=== PATIENT | male | born 1985 | race Caucasian/White ===

== ENCOUNTER 2018-09-21 08:39 | Inpatient (IN) ==
[2018-09-21] MEDS ORDERED: SENOKOT PO PRN (14:55)
[2018-09-21] MEDS ORDERED: DULCOLAX PR PRN (14:55)
[2018-09-21] MEDS ORDERED: PHENOBARBITAL IV PRN (14:55)
[2018-09-21] MEDS ORDERED: MOTRIN PO PRN (14:55)
[2018-09-21] MEDS ORDERED: LIBRIUM PO PRN (14:55)
[2018-09-21] MEDS ORDERED: TUBERSOL ID ONE (14:55)
[2018-09-21] MEDS ORDERED: ATARAX PO PRN (14:55)
[2018-09-21] MEDS ORDERED: NICODERM PATCH TD PRN (14:55)
[2018-09-21] MEDS ORDERED: IMODIUM PO PRN (14:55)
[2018-09-21] MEDS ORDERED: ZOFRAN IV PRN (14:55)
[2018-09-21] MEDS ORDERED: ROBAXIN PO PRN (14:55)
[2018-09-21] MEDS ORDERED: SINEMET 25/100 PO PRN (14:55)
[2018-09-21] MEDS ORDERED: D5W 1,000 ML IV PRN (14:55)
[2018-09-21] MEDS ORDERED: ZOFRAN ODT PO PRN (14:55)
[2018-09-21] MEDS ORDERED: BENTYL PO PRN (14:55)
[2018-09-21] MEDS ORDERED: MAALOX PLUS LIQUID PO PRN (14:55)
[2018-09-21] MEDS ORDERED: TYLENOL PO PRN (14:55)
[2018-09-21 15:56] LABS: HEMATOCRIT 38.3 % (42.0-52.0); HEMOGLOBIN 12.9 g/dL (14.0-18.0); MCH 32.1 PG (27-31); MCHC 33.7 g/dL (33-37); MCV 95.3 FL (81-99); MPV 10.4 FL (7.4-10.4); RBC 4.02 XMIL (4.7-6.1); RDW 12.2 % (11.5-14.5); WBC 6.04 X1000 (4.8-10.8)
[2018-09-21 16:23] LABS: AMYLASE 21 U/L (20-200); LIPASE 16 U/L (13-60)
[2018-09-21 16:26] LABS: AGAP 9; ALBUMIN 4.4 g/dL (3.5-5.0); ALKALINE PHOSPHATASE 79 U/L (32-122); BUN 17 mg/dL (8-22); CALCIUM 8.8 mg/dL (8.8-10.2); CHLORIDE 105 mmol/L (98-107); COSMO 288; CREATININE 0.8 mg/dL (0.7-1.2); ESTIMATED GFR > 60; GLUCOSE 87 mg/dL (70-104); GOT 14 U/L (10-34); GPT 15 U/L (10-44); INR 0.86; POTASSIUM 5.4 mmol/L (3.5-5.1); PROTIME 12.2 Seconds (11.0-16.0); SODIUM 144 mmol/L (136-145); TCO2 30 mmol/L (25-35); TOTAL PROTEIN 7.1 g/dL (6.3-8.3)
[2018-09-21 16:49] LABS: URINE SOURCE VOIDED
[2018-09-21 17:05] LABS: BILIRUBIN URINE NEGATIVE (NEGATIVE); BLOOD URINE NEGATIVE (NEGATIVE); CLARITY CLEAR (CLEAR); COLOR YELLOW; GLUCOSE URINE NEGATIVE (NEGATIVE); KETONE URINE NEGATIVE (NEGATIVE); LEUKOCYTES URINE NEGATIVE (NEGATIVE); NITRITE URINE NEGATIVE (NEGATIVE); PROTEIN URINE NEGATIVE (NEGATIVE); SP GRAVITY URINE 1.005; UROBILINOGEN URINE NORMAL
[2018-09-21] MEDS ORDERED: NS 1,000 ML IV SCH (17:45)
[2018-09-21] MEDS ORDERED: SUBOXONE 2 MG/0.5 MG FILM SL SCH (18:00)
[2018-09-21] MEDS ORDERED: TORADOL IV PRN (18:11)
[2018-09-21] MEDS: LIBRIUM PO SCH (18:35)
[2018-09-21 18:54] LABS: UR AMPHETAMINES QUAL PRESUMPTIVE POSITIVE (NONE DETECT)
[2018-09-21 18:55] LABS: UR BARBITUATES QUAL NONE DETECTED (NONE DETECT); UR BENZODIAZEPIN QUAL PRESUMPTIVE POSITIVE (NONE DETECT); UR CANNABINOIDS QUAL PRESUMPTIVE POSITIVE (NONE DETECT); UR COCAINE QUAL NONE DETECTED (NONE DETECT); UR METHADONE QUAL NONE DETECTED (NONE DETECT); UR METHAMPHETAMINE QUAL NONE DETECTED (NONE DETECT); UR OPIATES QUAL NONE DETECTED (NONE DETECT); UR OXYCODONE QUAL NONE DETECTED (NONE DETECT); UR PCP QUAL NONE DETECTED (NONE DETECT); UR PROPOXYPHENE QUAL NONE DETECTED (NONE DETECT); UR TCA QUAL NONE DETECTED (NONE DETECT)
[2018-09-22] MEDS: LIBRIUM PO SCH ×4 (00:16→18:39)
[2018-09-22] MEDS: SEROQUEL PO PRN ×2 (00:25→20:54)
[2018-09-22] MEDS: PROTONIX PO SCH (06:13)
[2018-09-22 07:26] LABS: HEMATOCRIT 35.7 % (42.0-52.0); HEMOGLOBIN 11.8 g/dL (14.0-18.0); MCH 32.1 PG (27-31); MCHC 33.1 g/dL (33-37); MPV 10.6 FL (7.4-10.4); RBC 3.68 XMIL (4.7-6.1); RDW 12.5 % (11.5-14.5); WBC 4.08 X1000 (4.8-10.8)
[2018-09-22 07:51] LABS: AGAP 6; ALBUMIN 3.7 g/dL (3.5-5.0); ALKALINE PHOSPHATASE 69 U/L (32-122); BUN 12 mg/dL (8-22); CHLORIDE 107 mmol/L (98-107); COSMO 282; CREATININE 0.5 mg/dL (0.7-1.2); ESTIMATED GFR > 60; GLUCOSE 84 mg/dL (70-104); GOT 12 U/L (10-34); GPT 12 U/L (10-44); POTASSIUM 4.2 mmol/L (3.5-5.1); SODIUM 142 mmol/L (136-145); TCO2 30 mmol/L (25-35); TOTAL PROTEIN 6.4 g/dL (6.3-8.3)
[2018-09-22] MEDS: THERA M PLUS PO SCH (09:47)
[2018-09-22] MEDS: VITAMIN B-1 PO SCH (09:47)
[2018-09-22] MEDS: FOLIC ACID PO SCH (09:48)
[2018-09-22] MEDS: SUBOXONE 8 MG/2 MG FILM SL SCH ×2 (09:48→20:54)
--- NOTE | 2018-09-22 20:55 | PROGRESS NOTE ---
DATE: 09/22/2018 SUBJECTIVE: The patient is a 33-year-old male who presented [facility] secondary to nausea, vomiting, abdominal pain. He continues to have some of those symptoms, although notes that they are improving. States he had a bad night. Still having insomnia and is quite restless. PHYSICAL EXAMINATION: Vital Signs: Reviewed. He is afebrile. Blood pressure is currently stable. Heart rate is stable. General: Patient is awake, alert. He is in no current respiratory distress. HEENT: Normocephalic, atraumatic. MAL. Neck: Supple. No JVD. Cardiovascular: Regular rate. Chest: Chest clear, nonlabored. Abdomen: Soft, nondistended. Nontender. Extremities: Moves all extremities. ASSESSMENT: 1. Nausea and vomiting with abdominal pain. 2. Tremors. 3. Myalgias. 4. Paresthesias. 5. Paroxysmal sweating. 6. Opiate abuse, withdrawal and stabilization. 7. Benzo abuse, withdrawal and stabilization. PLAN: Continue patient in the hospital. Continue to wean. Continue counseling. Further orders as needed. cc: Herrera Preciado MD
[2018-09-22] MEDS: DESYREL PO PRN (23:46)
[2018-09-23] MEDS: LIBRIUM PO SCH ×3 (02:36→18:46)
[2018-09-23] MEDS: PROTONIX PO SCH ×2 (06:21→08:42)
[2018-09-23] MEDS: VITAMIN B-1 PO SCH (08:42)
[2018-09-23] MEDS: THERA M PLUS PO SCH (08:43)
[2018-09-23] MEDS: FOLIC ACID PO SCH (08:43)
[2018-09-23] MEDS: SUBOXONE 8 MG/2 MG FILM SL SCH ×2 (08:43→21:04)
[2018-09-23] MEDS: SEROQUEL PO PRN (21:03)
[2018-09-23] MEDS: DESYREL PO PRN (23:56)
[2018-09-24] MEDS: LIBRIUM PO SCH ×2 (02:34→20:48)
[2018-09-24] MEDS: PROTONIX PO SCH (06:20)
[2018-09-24] MEDS ORDERED: SUBOXONE 2 MG/0.5 MG FILM SL ONE (09:22)
[2018-09-24] MEDS: VITAMIN B-1 PO SCH (09:57)
[2018-09-24] MEDS: FOLIC ACID PO SCH (09:58)
[2018-09-24] MEDS: THERA M PLUS PO SCH (09:58)
--- NOTE | 2018-09-24 18:20 | PROGRESS NOTE ---
DATE: 09/24/2018 SUBJECTIVE: Patient notes he is feeling much better. Denies any muscle aches, tremors, myalgias, etc. PHYSICAL: Vital Signs: Reviewed and stable. Patient is awake, alert. He is in no current respiratory distress. Very pleasant to talk with. HEENT: Normocephalic. Neck: Supple. CV: Regular rate. Chest: Clear. Abdomen: Soft. ASSESSMENT: 1. Nausea, vomiting resolved. 2. Abdominal pain resolved. 3. Myalgias resolved. 4. Paresthesias resolved. 5. Paroxysmal sweating resolved. 6. Polysubstance use and abuse. PLAN: The patient's symptoms have resolved but this is likely secondary to taking Suboxone yesterday to improve his withdrawal symptoms. Today will decrease him to 4 mg this morning then 2 mg tonight. If he tolerates that then will change to 1 mg tomorrow. Will continue Librium, continue taper it. Again discussed with patient naltrexone, we will not start back currently as he is on Suboxone. cc: Herrera Preciado MD
--- NOTE | 2018-09-24 18:37 | HISTORY AND PHYSICAL ---
CHIEF COMPLAINT: Nausea, vomiting. HISTORY OF PRESENT ILLNESS: The patient is a 33-year-old male who presented [facility] secondary to long history of polysubstance abuse, has recently been on Suboxone but he states that he wants to be off of that. Notes that he stopped it abruptly and started having significant withdrawal symptoms. SOCIAL HISTORY: He is . He is currently unemployed. Lives at home in [place]. PAST MEDICAL HISTORY: Has no current active medical problems that are not related to substance abuse. He does have chronic anxiety, has history of blackouts and seizures that are related to his substance abuse. Has a remote history of hypertension but is not currently taking medications. MEDICATIONS: Nica, Klonopin 1 mg twice daily, Suboxone 8 mg daily. ALLERGIES: No known drug allergies. REVIEW OF SYSTEMS: CINA score is 8 secondary to abdominal pain, tremors, myalgias, restlessness, nausea. Denies any fevers or chills, denies any dysuria, frequency, urgency, hesitancy, denies polyuria, polydipsia, denies skin rashes, weight loss or weight gain. SUBSTANCE ABUSE HISTORY: The patient was in [place] for 30 days 2013. He has been court ordered to get off of all substances. Started marijuana at 20 currently smokes once, twice a week. Started depressants at age 23 currently taking Klonopin and Xanax 1 to 60 mg daily, he has been using Suboxone but notes he likes Subutex tablets and he has been snorting those. FAMILY HISTORY: Noncontributory. PHYSICAL: Vital Signs: Reviewed and stable. He is awake, alert. He is in no current respiratory distress. He is very pleasant to talk with. HEENT: Normocephalic. Neck: Supple. CV: Regular rate, no murmurs. Chest: Clear, nonlabored. Abdomen: Soft, nondistended. Extremities: Moves all extremities. Neuro: No focal changes. Skin: Warm, dry, no rashes. ASSESSMENT: 1. Nausea, vomiting. 2. Abdominal pain. 3. Myalgias. 4. Paresthesias. 5. Paroxysmal sweating. 6. Opiate abuse withdrawal and stabilization. 7. Benzodiazepine abuse withdrawal and stabilization. PLAN: Will continue patient in the hospital, continue to follow, continue counseling. Will place him on both Librium and low dose Suboxone and will wean both as tolerated. cc: Herrera Preciado MD
--- NOTE | 2018-09-24 18:48 | PROGRESS NOTE ---
DATE: 09/23/2018 SUBJECTIVE: Patient is seen and examined by myself on the . Patient states that he feels terrible. He is having lots of muscle aches. He was sweating all night. Did not sleep at all. Denies any fevers. States he has been nauseated. OBJECTIVE: Vital Signs: Reviewed. He is afebrile. Pulse is stable, respiratory rate 20. General: Patient is awake and alert. He is in no respiratory distress, but he is somewhat ill- appearing due to his withdrawal symptoms. HEENT: Normocephalic, atraumatic. Neck: Supple. Cardiovascular: Regular rate. Chest: Clear. Abdomen: Soft. Extremities: Moves all extremities. ASSESSMENT: 1. Nausea and vomiting. 2. Abdominal pain. 3. Myalgias. 4. Paresthesias. 5. Paroxysmal sweating. 6. Opiate abuse withdrawal and stabilization. PLAN: We will continue patient in the hospital, continue symptomatic care. We will increase his Suboxone to attempt to get on top of his withdrawal symptoms, and we will follow. cc: Herrera Preciado MD
[2018-09-24] MEDS: SEROQUEL PO PRN (20:49)
[2018-09-24] MEDS: SUBOXONE 2 MG/0.5 MG FILM SL PRN (20:52)
[2018-09-24] MEDS: DESYREL PO PRN (23:17)
[2018-09-25] MEDS: PROTONIX PO SCH (06:04)
[2018-09-25 07:42] VITALS: BP 118/71
[2018-09-25] MEDS: SUBOXONE 2 MG/0.5 MG FILM SL PRN (08:54)
[2018-09-25] MEDS: FOLIC ACID PO SCH (08:54)
[2018-09-25] MEDS: VITAMIN B-1 PO SCH (08:54)
[2018-09-25] MEDS: THERA M PLUS PO SCH (08:55)
[2018-09-25] MEDS: LIBRIUM PO SCH (08:55)
--- NOTE | 2018-09-25 18:52 | DISCHARGE SUMMARY ---
ADMISSION DATE: 09/21/2018 DISCHARGE DATE: 09/25/2018 DISCHARGE DIAGNOSES: 1. Nausea, vomiting. 2. Abdominal pain. 3. Myalgias. 4. Paresthesias. 5. Paroxysmal sweating. 6. Polysubstance use and abuse. 7. Chronic anxiety, depression. CONSULTATIONS: None. PROCEDURES: None. BRIEF HOSPITAL COURSE: The patient is a 33-year-old male who presented to [facility] secondary to nausea, vomiting, abdominal pain, and myalgias. Thankfully, he had an uneventful hospital course. On discharge, the patient is stating that he feels much better. He notes his withdrawal symptoms have completely resolved and is asking to go home. The patient was admitted to the hospital with polysubstance abuse. He was placed on Librium, and we used Suboxone to help with his opiate withdrawal. Unfortunately, Suboxone had to be increased to 8 mg to get on top of his withdrawal symptoms and then we weaned down from there. DISPOSITION: Again discussed with patient that he needs outpatient life counseling as well as drug counseling. Discussed with him that he needs to develop hobbies and activities that do not promote or encourage use and abuse. Discussed that he needs some form of medication assist to therapy as he learns to get his life back under control. Discussed that if he gets home and starts having significant opiate cravings, he should consider taking a smaller dose of Suboxone for a longer period of time. We did discharge with naltrexone. Discussed with patient that he has recently been on Suboxone so he should not use this yet. He should wait until Thursday, 4 days from now, and start with a half a dose a day for 2 days. If his withdrawal symptoms do not worsen, then he would go to a whole pill. He should take this for 3 to 4 months to assist in recovery. cc: Herrera Preciado MD
== END 2018-09-25 10:55 | disposition home or self-care (01) | DRG 897 ==
LOC: P.MEDSURG 14:30
PROVIDERS: ADMIT Family Medicine; ATTEND Family Medicine
CPT/HCPCS: 80053; 80104; 80301; 80305; 80307; 80320; 82055; 82150; 83690; 85027; 85610; 86580; A9270; G0431; G0434; G0477; G0480; G6040; J1885; J7030